=== PATIENT | male | born 1990 | race Caucasian/White ===

== ENCOUNTER 2016-09-01 03:12 | Emergency (ER) ==
[2016-09-01 03:31] VITALS: BP 137/79
[2016-09-01] MEDS ORDERED: PONTOCAINE 0.5% OPH SOLUTION ONE (03:34)
[2016-09-01] MEDS ORDERED: FLUORI-I-STRIP ONE (03:35)
[2016-09-01] MEDS ORDERED: PONTOCAINE 0.5% OPH SOLUTION LEFT EYE ONE (03:36)
[2016-09-01] MEDS ORDERED: FLUORI-I-STRIP OPH ONE (03:37)
[2016-09-01] MEDS ORDERED: EYE-STREAM SOLUTION ONE (03:42)
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
[2016-09-01] MEDS ORDERED: EYE-STREAM SOLUTION LEFT EYE ONE (03:48)
[2016-09-01] MEDS ORDERED: GENTAMICIN 0.3% OPH DROPS LEFT EYE ONE (03:50)
[2016-09-01] MEDS ORDERED: TORADOL PO ONE (03:53)
== END 2016-09-01 04:13 | disposition home or self-care (01) ==
LOC: P.ED 03:12
DX: T52.8X1A Toxic effect of other organic solvents, accidental (unintentional), initial encounter (principal); T26.62XA Corrosion of cornea and conjunctival sac, left eye, initial encounter; H57.12 Ocular pain, left eye
CPT/HCPCS: 99283